=== PATIENT | male | born 1970 | race Caucasian/White ===

== ENCOUNTER 2017-04-15 06:59 | Day surgery (SDC) | payer OTHER ==
[2017-04-12 09:16] VITALS: BP 132/86
[2017-04-12 09:53] LABS: BASOPHILS # (AUTO) 0.04 x10^3/uL (0-0.1); BASOPHILS % (AUTO) 1 % (0-1); EOSINOPHILS # (AUTO) 0.25 x10^3/uL (0-0.4); EOSINOPHILS % (AUTO) 4 % (1-7); LYMPHOCYTES # (AUTO) 1.82 x10^3/uL (1-3.4); LYMPHOCYTES % (AUTO) 25 % (22-44); MD NO; MEAN CORPUSCULAR HEMOGLOBIN 28.8 pg (27.5-34.5); MEAN CORPUSCULAR HGB CONC 33.8 g/dL (33.2-36.2); MEAN CORPUSCULAR VOLUME 85.3 fL (81-97); MEAN PLATELET VOLUME 6.7 fL (7.4-10.4); MONOCYTES # (AUTO) 0.37 x10^3/uL (0.2-0.8); MONOCYTES % (AUTO) 5 % (2-9); NEUTROPHILS # (AUTO) 4.83 x10^3/uL (1.8-6.8); NEUTROPHILS % (AUTO) 66 % (42-75); PLATELET COUNT 348 x10^3/uL (130-400); RED BLOOD COUNT 5.23 x10^6/uL (4.38-5.82); RED CELL DISTRIBUTION WIDTH 14.5 % (9.4-14.8)
[2017-04-12 10:04] LABS: CHLORIDE 104 mmol/L (98-107)
[2017-04-12 10:05] LABS: ANION GAP 6 mmol/L (5-15); CALCIUM 8.7 mg/dL (8.5-10.1)
[2017-04-12 10:07] LABS: ALANINE AMINOTRANSFERASE 32 U/L (12-78); ALKALINE PHOSPHATASE 75 U/L (45-117); BILIRUBIN,TOTAL 0.3 mg/dL (0.2-1.0); CREATININE 0.91 mg/dL (0.7-1.3); TOTAL PROTEIN 8.1 g/dL (6.4-8.2)
[~2017-04-15] VITALS: Ht 177.8 cm; Wt 132.7 kg
[~2017-04-15 06:59] MED LIST: ALLO300T PO; CETI10TA79 PO; FENO160T PO; GUAI-348 PO; IBUP-1221 PO; L. A1CAP8 PO; LISI-170 PO; METF500T4 PO; NAPR220C2 PO; OMEP40CA6 PO; SIMV40TA3 PO; SITA1TAB PO; SITA25TA PO
[2017-04-15] MEDS ORDERED: OXYMETAZOLINE NASAL SPRAY 0.05%, 15ML ONE (07:25)
[2017-04-15] MEDS ORDERED: MUPIROCIN OINT 2%, 22GM ONE (07:25)
[2017-04-15] MEDS ORDERED: COCAINE TOPICAL SOLN 4%, 4ML ONE (07:25)
[2017-04-15] MEDS ORDERED: EPINEPHRINE 1 MG/ML, 1ML ONE (07:25)
[2017-04-15] MEDS ORDERED: LIDOCAINE 1%, 20ML ONE (07:25)
[2017-04-15] MEDS ORDERED: LACTATED RINGERS 1,000 ML IV SCH (07:36)
[2017-04-15 07:47] VITALS: BP 132/86
[2017-04-15] MEDS ORDERED: LIDOCAINE 1%, 2ML SQ PRN (08:00)
[2017-04-15] MEDS ORDERED: MIDAZOLAM 1 MG/ML, 2ML ONE (08:24)
[2017-04-15] MEDS ORDERED: FENTANYL PF 250 MCG/5ML ONE (08:24)
[2017-04-15] MEDS ORDERED: DEXAMETHASONE 4 MG/ML, 1ML ONE (10:54)
[2017-04-15] MEDS ORDERED: ONDANSETRON 2MG/ML, 2ML ONE (10:54)
[2017-04-15] MEDS ORDERED: ROCURONIUM 10 MG/ML,10ML ONE (10:54)
[2017-04-15] MEDS ORDERED: SUCCINYLCHOLINE 20 MG/ML, 10ML ONE (10:54)
[2017-04-15] MEDS ORDERED: PROPOFOL 10 MG/ML, 20ML ONE (10:54)
[2017-04-15] MEDS ORDERED: NEOSTIGMINE 1 MG/ML, 10ML ONE (10:54)
[2017-04-15] MEDS ORDERED: GLYCOPYRROLATE 0.2MG/1ML, 5ML ONE (10:54)
[2017-04-15] MEDS ORDERED: LABETALOL 5MG/ML, 20ML IV PRN (11:00)
[2017-04-15] MEDS ORDERED: MEPERIDINE/PF 25MG/0.5ML IVPush PRN (11:00)
[2017-04-15] MEDS ORDERED: DIAZEPAM 5 MG/ML, 2ML IVPush PRN (11:00)
[2017-04-15] MEDS ORDERED: hydrALAzine 20 MG/ML, 1ML IV PRN (11:00)
[2017-04-15] MEDS ORDERED: ONDANSETRON 2MG/ML, 2ML IVPush PRN (11:00)
[2017-04-15] MEDS ORDERED: OXYcodone 5 MG/5 ML ORAL.SOL UDC PO PRN (11:00)
[2017-04-15] MEDS ORDERED: HYDROcodone/APAP 7.5-325MG/15ML UDC PO PRN (11:00)
[2017-04-15] MEDS ORDERED: MIDAZOLAM 1 MG/ML, 2ML IV PRN (11:00)
[2017-04-15] MEDS ORDERED: EPHEDRINE 50 MG/ML, 1ML IVPush PRN (11:00)
[2017-04-15] MEDS ORDERED: ACETAMINOPHEN 325 MG TABLET PO PRN (11:00)
[2017-04-15] MEDS ORDERED: ALBUTEROL SULFATE 2.5 MG/3 ML NPPB PRN (11:00)
[2017-04-15] MEDS ORDERED: METOPROLOL 1 MG/ML, 5ML IV PRN (11:00)
[2017-04-15] MEDS ORDERED: PROMETHAZINE 25 MG/ML, 1ML IV PRN (11:00)
[2017-04-15] MEDS ORDERED: HYDROmorphone 1 MG/ML, 1ML IV PRN (11:00)
[2017-04-15] MEDS ORDERED: OXYcodone 5 MG/5 ML ORAL.SOL UDC ONE (11:13)
[2017-04-15] MEDS ORDERED: ACETAMINOPHEN 650 MG/20.3 ML UDC ONE (11:13)
[2017-04-15] MEDS ORDERED: FENTANYL PF 100 MCG/2ML ONE (11:13)
[2017-04-15] MEDS: FENTANYL PF 100 MCG/2ML IV PRN ×2 (11:18→11:34)
== END 2017-04-15 13:05 ==
LOC: OUT 06:59
PROVIDERS: ATTEND Otolaryngology Facial Plastic Surgery
DX: J32.4 Chronic pansinusitis (principal); E11.9 Type 2 diabetes mellitus without complications; I10 Essential (primary) hypertension; K21.9 Gastro-esophageal reflux disease without esophagitis; M10.9 Gout, unspecified; G43.909 Migraine, unspecified, not intractable, without status migrainosus
CPT/HCPCS: 31254; 31256; 36415; 71046; 80053; 82962; 85025; 88304; 93005; J0171; J0330; J1100; J2250; J2405; J2704; J2710; J3010; J3490; J7120; 88305

== ENCOUNTER 2017-08-23 12:31 | Emergency (ER) | payer OTHER ==
[~2017-08-23] VITALS: Ht 177.8 cm; Wt 130.0 kg
[2017-08-23 13:19] LABS: BASOPHILS # (AUTO) 0.04 x10^3/uL (0-0.1); BASOPHILS % (AUTO) 1 % (0-1); EOSINOPHILS # (AUTO) 0.29 x10^3/uL (0-0.4); EOSINOPHILS % (AUTO) 4 % (1-7); LYMPHOCYTES # (AUTO) 1.84 x10^3/uL (1-3.4); LYMPHOCYTES % (AUTO) 23 % (22-44); MD NO; MEAN CORPUSCULAR HEMOGLOBIN 28.7 pg (27.5-34.5); MEAN CORPUSCULAR HGB CONC 33.6 g/dL (33.2-36.2); MEAN CORPUSCULAR VOLUME 85.7 fL (81-97); MEAN PLATELET VOLUME 6.7 fL (7.4-10.4); MONOCYTES % (AUTO) 6 % (2-9); NEUTROPHILS % (AUTO) 66 % (42-75); PLATELET COUNT 377 x10^3/uL (130-400); RED BLOOD COUNT 5.13 x10^6/uL (4.38-5.82); RED CELL DISTRIBUTION WIDTH 15.1 % (9.4-14.8)
[2017-08-23 13:32] LABS: ANION GAP 8 mmol/L (5-15); CALCIUM 8.9 mg/dL (8.5-10.1); CHLORIDE 105 mmol/L (98-107)
[2017-08-23 13:33] LABS: ALANINE AMINOTRANSFERASE 39 U/L (12-78); ALBUMIN 3.7 g/dL (3.4-5.0)
[2017-08-23 13:35] LABS: ALKALINE PHOSPHATASE 64 U/L (45-117); BILIRUBIN,TOTAL 0.6 mg/dL (0.2-1.0); TOTAL PROTEIN 7.4 g/dL (6.4-8.2)
[2017-08-23] MEDS ORDERED: ATOR-2 PO (14:36)
[2017-08-23] MEDS ORDERED: FLUT9.9S NAS (14:36)
[2017-08-23] MEDS ORDERED: LORA-702 PO (14:36)
[2017-08-23] MEDS ORDERED: OMEP-110 PO (14:36)
[2017-08-23 15:06] LABS: MICROSCOPIC NOT IND
[2017-08-23 15:15] LABS: CULTURE INDICATED? NO
[2017-08-23] MEDS ORDERED: OMNIPAQUE 350 MG/ML, 150 ML BOTTLE ONE (15:50)
[2017-08-23 16:29] VITALS: BP 104/57
== END 2017-08-23 17:16 | disposition home or self-care (01) ==
LOC: ED 17:10
DX: R10.31 Right lower quadrant pain (principal); E11.9 Type 2 diabetes mellitus without complications; E78.5 Hyperlipidemia, unspecified; I10 Essential (primary) hypertension
CPT/HCPCS: 36415; 74177; 80053; 81003; 83690; 85025; 86677; 99285; Q9967

== ENCOUNTER 2018-04-03 10:38 | Emergency (ER) | payer OTHER ==
[~2018-04-03] VITALS: Ht 177.8 cm; Wt 114.9 kg
[~2018-04-03 10:38] MED LIST changes: +ATOR-2 PO; +FLUT9.9S NAS; +LORA-702 PO; +METF500T17 PO; -METF500T4 PO; +OMEP-110 PO
--- NOTE | 2018-04-03 11:11 | NUR ---
CONTACT WITH PT, 47 YR OLD MALE HERE WITH C/O "DIZZY, LIGHTHEADED WHEN I STAND UP, JUST FEELING WEAK AND TIRED ALL OVER. BP TODAY WAS 100/80. HAVING COLD NUMB, HANDS GOING TO SLEEP" HAS NOTICED IN LAST WEEK OR TWO. DIZZY STUFF STARTED YESTERDAY. LAST 40 LBS OVER THE LAST 6 MONTHS.
--- NOTE | 2018-04-03 11:22 | NUR ---
DR NICHOLS AT BEDSIDE TO EVAL PT
[2018-04-03] MEDS ORDERED: SODIUM CHLORIDE FLUSH 10ML SYR IVF ONE (11:30)
[2018-04-03 11:57] LABS: BASOPHILS # (AUTO) 0.06 x10^3/uL (0-0.1); BASOPHILS % (AUTO) 1 % (0-1); EOSINOPHILS # (AUTO) 0.16 x10^3/uL (0-0.4); EOSINOPHILS % (AUTO) 2 % (1-7); LYMPHOCYTES # (AUTO) 1.94 x10^3/uL (1-3.4); LYMPHOCYTES % (AUTO) 23 % (22-44); MD NO; MEAN CORPUSCULAR HEMOGLOBIN 29.7 pg (27.5-34.5); MEAN CORPUSCULAR HGB CONC 33.8 g/dL (33.2-36.2); MEAN PLATELET VOLUME 6.6 fL (7.4-10.4); MONOCYTES # (AUTO) 0.41 x10^3/uL (0.2-0.8); MONOCYTES % (AUTO) 5 % (2-9); NEUTROPHILS % (AUTO) 70 % (42-75); PLATELET COUNT 357 x10^3/uL (130-400); RED BLOOD COUNT 5.05 x10^6/uL (4.38-5.82); RED CELL DISTRIBUTION WIDTH 14.4 % (9.4-14.8)
[2018-04-03 12:15] LABS: ALANINE AMINOTRANSFERASE 29 U/L (12-78); ALBUMIN 3.8 g/dL (3.4-5.0); ANION GAP 8 mmol/L (5-15); CALCIUM 9.1 mg/dL (8.5-10.1); CHLORIDE 104 mmol/L (98-107); CREATININE 0.76 mg/dL (0.7-1.3)
[2018-04-03 12:20] LABS: ALKALINE PHOSPHATASE 80 U/L (45-117); BILIRUBIN,TOTAL 0.3 mg/dL (0.2-1.0); T4 (THYROXINE) 9.4 mcg/dL (4.5-12.1); TOTAL PROTEIN 7.6 g/dL (6.4-8.2); TROPONIN I < 0.015 ng/mL (0.000-0.045)
[2018-04-03 12:31] LABS: CREATINE KINASE, TOTAL 44 U/L (39-308)
[2018-04-03 13:45] VITALS: BP 96/54
--- NOTE | 2018-04-03 14:07 | NUR ---
PT AMB TO BR, GAIT STEADY. PT PROVIDED WITH WARM BLANKET. PO FLUIDS AT BEDSIDE. NO OTHER NEEDS EXPRESSED AT THIS TIME. PT AWARE OF WAITING FOR FURTHER DISPOSITION.
--- NOTE | 2018-04-03 14:59 | NUR ---
BREAK RN FOR ANDREA SANTIAGO. RECEIVED REPORT. PT RESTING COMFORTABLY. VSS. AWAITING CHART AND DISCHARGE PAPERS FROM ERP. FALL PRECAUTIONS IN PLACE
--- NOTE | 2018-04-03 15:10 | NUR ---
BREAK PAMELA. MONTSERRAT SANTIAGO AT BEDSIDE TO ASSIST WITH PT DISCHARGE
== END 2018-04-03 15:45 | disposition home or self-care (01) ==
LOC: ED 13:10
DX: R55 Syncope and collapse (principal); I10 Essential (primary) hypertension; E11.9 Type 2 diabetes mellitus without complications
CPT/HCPCS: 80053; 82550; 82962; 84436; 84443; 84484; 85025; 93005; 99284